=== PATIENT | male | born 1945 | race Caucasian/White ===

== ENCOUNTER 2016-10-26 10:11 | Outpatient (CLI) ==
--- NOTE | 2016-10-26 11:13 | US ---
EXAM: Bilateral lower extremity venous Doppler HISTORY: Concern for DVT with bilateral lower extremity swelling and tenderness. COMPARISON: None TECHNIQUE: Sonographic and Doppler evaluation of the bilateral lower extremity vessels from the com mon femoral through the anterior tibial veins were obtained. Augmentation and compression technique s were also performed. FINDINGS: The anterior tibial veins were not visualized. There is spontaneous Doppler flow seen in the bilateral lower extremity veins from the common femoral through the anterior tibial veins. The re is normal compression and augmentation throughout the lower extremity veins. There is no visuali zed reflux. Sonographic appearance of the soft tissues demonstrate right lower extremity edema. IMPRESSION: 1. No lower extremity thrombus. 2. Mild right lower extremity subcutaneous edema.
== END 2016-10-26 10:12 ==
LOC: RAD 10:11
PROVIDERS: ATTEND Family Medicine
DX: M79.89 Other specified soft tissue disorders (principal); M79.606 Pain in leg, unspecified

== ENCOUNTER 2017-06-17 09:55 | Outpatient (CLI) | END 2017-06-17 09:56 | disposition home or self-care (01) | LOC: LAB 09:55 | PROVIDERS: ATTEND Family Medicine | DX: R50.9 Fever, unspecified (principal) | CPT/HCPCS: 36415; 80053; 81001; 85025; 87040; 87086 ==